=== PATIENT | female | born 1990 | race Caucasian/White ===

== ENCOUNTER 2024-06-25 09:40 | Emergency (ER) | payer OTHER, SELFPAY ==
[2024-06-25 10:09] VITALS: BP 146/99; PULSE 89; RESP 18; TEMP 37.4; O2SAT 100; BMI 33.1
--- NOTE | 2024-06-25 10:47 | ED.CHESTPAIN ---
HPI - Chest Pain General Time Seen by Provider: 10:47 Date Seen: 06/25/24 Chief Complaint: Chest Pain Stated Complaint: Chest pain/Abdominal Pain - GERD Time Seen by Provider: 06/25/24 10:46 History of Present Illness HPI narrative: Shavon is a 34-year-old female coming into the ER with concerns of reflux symptoms that are significant for her. She has reflux symptoms and significant heartburn, she feels it in the lower esophagus, epigastric area and upper stomach. She does note that symptoms have been present for about 7 months. I did spend about 30 minutes looking through her outside records prior to coming in to see her. She is worried that she is not being taken seriously through [facility]. 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 She does not want to lose her job. She states that she has been on Protonix 40 mg daily but not twice a day. She has tried omeprazole, esomeprazole. She has been on famotidine, was on 2 tablets twice a day then was tapered down to 1 tablet twice a day, felt worsen put herself back up on 2 tablets twice a day. She has tried Tums, Tomeka-Roulette, Mylanta, glenys. She notes no fevers or chills. Her lower abdomen has had some sharp pain with her current symptoms. She notes her regurgitant symptoms or maybe down. She has had surgery for endometriosis. She was in [facility] on June 21, she has a known diagnosis of GERD without esophagitis. They have ordered an esophagram. She notes she has had an EGD recently and there is no evidence of esophagitis. She has completed a Cox study which did show significant GERD, she did not completed though as there was some issue with the probe. I did review the records, she had an EGD on June 07 and had Cox pH probe placement. Despite only having the capsule on for 18 hours, fell off, it was strongly positive and had positive symptom correlation for regurgitation. This study represented a large amount of esophageal acid exposure and her symptom correlation score was [address] Pan from [facility] at [place] has been involved in her case. She is wondering if there is anything else to do. If there are other medicines. I do not see any recent CT imaging that I can review. Related Data Home Medications ?Medication ?Instructions ?Recorded ?Confirmed acetaminophen 500 mg tablet mg PO 06/25/24 clonazepam 0.5 mg tablet mg PO 06/25/24 dextroamphetamine sulfate 10 mg 10 mg PO 3XD 06/25/24 06/25/24 tablet diclofenac sodium 1 % topical gel 1 ea topical QID 06/25/24 06/25/24 elagolix 150 mg tablet (Orilissa) mg PO 06/25/24 famotidine 40 mg tablet 40 mg PO BID 06/25/24 06/25/24 lactulose 10 gram/15 mL oral ml PO 06/25/24 solution lamotrigine 200 mg tablet 400 mg PO QPM 06/25/24 06/25/24 metoprolol succinate 50 mg 75 mg PO DAILY 06/25/24 06/25/24 tablet,extended release 24 hr nicotine (polacrilex) 2 mg gum mg PO 06/25/24 norethindrone (contraceptive) 0.35 mg PO 06/25/24 mg tablet (Kiya) ondansetron HCl 4 mg tablet 4 mg PO Q8H PRN 06/25/24 06/25/24 oxycodone 5 mg tablet mg PO 06/25/24 pantoprazole 40 mg tablet,delayed 40 mg PO DAILY 06/25/24 06/25/24 release polyethylene glycol 3350 17 g PO 06/25/24 gram/dose oral powder prazosin 1 mg capsule mg PO 06/25/24 prazosin 2 mg capsule mg PO 06/25/24 prazosin 5 mg capsule 5 mg PO QPM 06/25/24 06/25/24 sennosides 8.6 mg-docusate sodium PO 06/25/24 50 mg tablet (Stool Softener-Stimulant Laxative) tizanidine 4 mg tablet 4 mg PO 3XD 06/25/24 06/25/24 ziprasidone HCl 20 mg capsule 80 mg PO DAILY 06/25/24 06/25/24 Previous Rx's ?Medication ?Instructions ?Recorded pantoprazole 40 mg tablet,delayed 40 mg PO BID #30 tabs 06/25/24 release (Protonix) Allergies Allergy/AdvReac Type Severity Reaction Status Date / Time sumatriptan Allergy Intermediate SOB Verified 06/25/24 10:26 levomilnacipran Allergy Mild anxiety Verified 06/25/24 10:26 sucralfate Allergy Mild itching Verified 06/25/24 10:26 asenapine Allergy Unknown Verified 06/25/24 10:26 carbamazepine Allergy Unknown Verified 06/25/24 10:26 Review of Systems Status of ROS Reports: 6 or more systems reviewed and unremarkable except as noted in History and below Exam Const Vital Signs, click to edit/add: Vital Signs - 24 hr 06/25/24 10:09 Temperature 99.4 F Pulse Rate [Pulse Oximeter] 89 Respiratory Rate 18 Blood Pressure [Right Upper Arm] 146/99 H Pulse Oximetry 100 Oxygen Delivery Method Room Air Shavon is alert, interactive, no apparent distress. She is seen in exam room to, lying in the bed. Sclera clear, symmetrical facial function, able speak in complete sentences. Neck supple, no adenopathy. Lungs clear, no wheezing or crackles or tachypnea. CV regular rate and rhythm, no murmur. Abdomen is soft, nontender, nondistended, no organomegaly, bowel sounds are present. Skin visualized out rash. Documenting provider has reviewed patient's vital signs: yes Course Course ED Course: Shavon and I have discussed imaging, she declines, she states she has had multiple CT scans over the past year and recent history. She would like to avoid further radiation. We discussed doing screening labs, she does agree to do that. Want to ensure that we are not missing anything. Will get an EKG and troponin on her as well to ensure no atypical presentation of symptoms that her actually not GI. Will try GI cocktail, try a 40 mg IV Protonix and await her labs. Reevaluation(s) Time of Reevaluation #1: 12:23 Reevaluation #1: Checked on patient, her upper esophagus is numb, feels better but she still feels the epigastric burning, she has never had the GI cocktail not work for her. Reviewed with her her labs are reassuring outside of a hemoglobin of 11.5. She believes that is where she typically runs. We discussed that narcotics really do not have a role here, they do not change the underlying physiology or symptoms. I will see if there is anything else that I can come up with. We use a give patient has a liquid called Bicitra before going into surgery or C-sections. I will see if pharmacy maybe has some, perhaps could try that. She did request IV Toradol after I had been in with her initially did order 15 mg IV. Time of Reevaluation #2: 12:43 Reevaluation #2: Patient is requesting to leave. Did review with her that I was talking to Pharmacy, others to see about any further options with management. Pharmacy did recommend Gaviscon [id number]. I have reviewed what she is on, they agree with having the Protonix increased. I really think she needs to talk to GI, I do not have that capacity here. I do also think that she needs to consider having the Simon fundoplication sooner rather than later if she is this miserable from her symptoms. Pharmacy states there was a shortage of Bicitra, we do not currently have any. Vital Signs Vital signs: Initial Vital Signs Temperature 99.4 F 06/25/24 10:09 Temperature Source Temporal Artery Scan 06/25/24 10:09 Pulse Rate 89 06/25/24 10:09 Respiratory Rate 18 06/25/24 10:09 Blood Pressure 146/99 H 06/25/24 10:09 Blood Pressure Mean 114 H 06/25/24 10:09 Blood Pressure Position Sitting 06/25/24 10:09 Pulse Oximetry 100 06/25/24 10:09 Oxygen Delivery Method Room Air 06/25/24 10:09 Vital Signs Temperature 99.4 F 06/25/24 10:09 Pulse Rate 89 06/25/24 10:09 Respiratory Rate 18 06/25/24 10:09 Blood Pressure 146/99 H 06/25/24 10:09 Pulse Oximetry 100 06/25/24 10:09 Oxygen Delivery Method Room Air 06/25/24 10:09 Temperature 99.4 F 06/25/24 10:09 Pulse Rate 89 06/25/24 10:09 Respiratory Rate 18 06/25/24 10:09 Blood Pressure 146/99 H 06/25/24 10:09 Pulse Oximetry 100 06/25/24 10:09 Oxygen Delivery Method Room Air 06/25/24 10:09 Medications Administered Medications: Discontinued Medications Generic Name Dose Route Start Last Admin Trade Name Freq PRN Reason Stop Dose Admin Ketorolac Tromethamine 15 mg 06/25/24 11:40 06/25/24 11:55 Ketorolac 15 Mg/Ml Inj IVP 06/25/24 11:41 15 mg ONCE ONE Administration Lidocaine/Aluminum/Magnesium/Simeth 30 ml 06/25/24 11:19 06/25/24 11:53 Gi Cocktail (Visc Lido/Antacid) 30 Ml PO 06/25/24 11:20 30 ml ONCE ONE Administration Pantoprazole Sodium 40 mg 06/25/24 11:19 06/25/24 11:56 Pantoprazole Sodium 40 Mg Inj IVP 06/25/24 11:20 40 mg ONCE ONE Administration MDM - Chest Pain Lab Data Attestation: I reviewed the patient's lab results. Labs: Lab Results 06/25/24 Range/Units 11:30 WBC 7.60 (4.50-11.00) K/uL RBC 3.92 L (4.00-5.20) m/uL Hgb 11.5 L (12.0-16.0) gm/dL Hct 35.5 (33.0-51.0) % MCV 91 (80-100) fL MCH 29 (26-34) pg MCHC 32 (32-36) gm/dL RDW Coeff of Keren 15.5 (11.5-15.5) % Plt Count 373 (140-440) K/uL Neut % (Auto) 76.4 H (42.0-72.0) % Lymph % (Auto) 16.2 L (20-44) % [place] % (Auto) 6.4 (0.0-11.0) % Eos % (Auto) 0.5 (0.0-7.0) % Baso % (Auto) 0.4 (0.0-3.0) % Neut # (Auto) 5.80 (1.7-7.0) K/uL Lymph # (Auto) 1.20 (0.90-2.90) K/uL [place] # (Auto) 0.50 (0.00-0.90) K/UL Eos # (Auto) 0.04 (0.00-0.50) K/uL Baso # (Auto) 0.03 (0.00-0.30) K/uL Abs Immat Gran (auto) 0.01 (0.00-0.30) K/uL Imm/Tot Granulo (auto) 0.1 % Sodium 137 (135-149) mmol/L Potassium 4.0 (3.6-5.1) mmol/L Chloride 105 (96-114) mmol/L Carbon Dioxide 23 (20-32) mmol/L Anion Gap 9 (7-15) mEq/L BUN 15 (5-24) mg/dL Creatinine 0.6 (0.5-1.5) mg/dL Estimated Creat Clear 132.02 Estimated GFR 120 ml/min Glucose 116 H (60-115) mg/dL Lactate 1.0 (0.5-1.9) mmol/L Calcium 9.4 (8.4-10.6) mg/dL Total Bilirubin 0.1 (0.1-1.5) mg/dL Direct Bilirubin 0.1 (0.0-0.5) mg/dL AST 22 (12-35) U/L ALT 17 (4-35) U/L Alkaline Phosphatase 92 (40-150) U/L Troponin I < 0.01 L (0.01-0.04) ng/mL C-Reactive Protein 0.7 (0.5-1.0) mg/dL NT-Pro-B Natriuret Pep 119 pg/mL Total Protein 7.4 (6.0-8.3) g/dL Albumin 4.3 (3.3-5.0) g/dL Lipase 65 (23-300) U/L ECG Data Attestation: I personally reviewed and interpreted this ECG as follows: (Normal sinus rhythm with sinus arrhythmia, 71 beats per minute. Poor R-wave progression anterior precordial leads without any ST segment changes, flipped T-waves in V1 and V2.) ECG interpretation date: 06/25/24 ECG interpretation time: 11:45 Prior ECG tracings: not available for review Discharge Plan Discharge Clinical Impression: Chest pain due to GERD Patient Disposition: Home, Self-Care Condition: Stable Instructions: GERD (Gastroesophageal Reflux Disease) (ED) Additional Instructions: Take Protonix twice a day. Stay on the famotidine twice a day at the increased dose. Please contact your primary care provider as well as your GI provider to discuss further management. I do think you may need to consider proceeding with the Simon fundoplication if they cannot find management to control your symptoms that you feel adequately help you. Activity Level: Activity as Tolerated Prescriptions: New pantoprazole [Protonix] 40 mg tablet,delayed release (DR/EC) 40 mg PO BID Qty: 30 0RF No Action lamotrigine 200 mg tablet 400 mg PO QPM metoprolol succinate 50 mg tablet extended release 24 hr 75 mg PO DAILY famotidine 40 mg tablet 40 mg PO BID clonazepam 0.5 mg tablet PO acetaminophen 500 mg tablet PO dextroamphetamine sulfate 10 mg tablet 10 mg PO 3XD lactulose 10 gram/15 mL solution PO diclofenac sodium 1 % gel 1 ea topical QID Orilissa 150 mg tablet PO nicotine (polacrilex) 2 mg gum PO tizanidine 4 mg tablet 4 mg PO 3XD prazosin 1 mg capsule PO ondansetron HCl 4 mg tablet 4 mg PO Q8H PRN sennosides-docusate sodium [Stool Softener-Stimulant Laxat] 8.6-50 mg tablet PO prazosin 5 mg capsule 5 mg PO QPM ziprasidone HCl 20 mg capsule 80 mg PO DAILY pantoprazole 40 mg tablet,delayed release (DR/EC) 40 mg PO DAILY polyethylene glycol 3350 17 gram/dose powder PO norethindrone (contraceptive) [Kiya] 0.35 mg tablet PO prazosin 2 mg capsule PO oxycodone 5 mg tablet PO Follow Up/Referrals: Corrina Aragon MD [Emergency Provider] - Stand Alone Forms: [facility] Info Instructions
[2024-06-25 11:39] LABS: Basophils Absolute Auto 0.03 K/uL (0.00-0.30); Basophils Percent Auto 0.4 % (0.0-3.0); Eosinophils Absolute Auto 0.04 K/uL (0.00-0.50); Eosinophils Percent Auto 0.5 % (0.0-7.0); Hematocrit 35.5 % (33.0-51.0); Hemoglobin* 11.5 gm/dL (12.0-16.0); Immature Granulocytes Abs Auto 0.01 K/uL (0.00-0.30); Immature Granulocytes Pct Auto 0.1 %; Lymphocytes Percent Auto 16.2 % (20-44); Mean Corpuscular HGB Conc 32 gm/dL (32-36); Mean Corpuscular Hemoglobin 29 pg (26-34); Mean Corpuscular Volume 91 fL (80-100); Monocytes Percent Auto 6.4 % (0.0-11.0); Neutrophils Percent Auto 76.4 % (42.0-72.0); Platelet Count* 373 K/uL (140-440); RDW Coefficient of Variation % 15.5 % (11.5-15.5); Red Blood Count 3.92 m/uL (4.00-5.20)
[2024-06-25 11:40] LABS: Slide Review Reflex No
[2024-06-25] MEDS: GI COCKTAIL (VISC LIDO/ANTACID) 30 ML PO (11:53)
[2024-06-25 11:55] LABS: Albumin* 4.3 g/dL (3.3-5.0); Chloride* 105 mmol/L (96-114)
[2024-06-25] MEDS: KETOROLAC 15 MG/ML inj IVP (11:55)
[2024-06-25 11:56] LABS: Sodium* 137 mmol/L (135-149)
[2024-06-25] MEDS: PANTOPRAZOLE SODIUM 40 MG INJ IVP (11:56)
[2024-06-25 11:58] LABS: Creatinine* 0.6 mg/dL (0.5-1.5); Est. Creatinine Clearance* 132.02; Estimated Glomerular Filt Rate 120 ml/min
[2024-06-25 11:59] LABS: Alanine Aminotransferase* 17 U/L (4-35); Alkaline Phosphatase* 92 U/L (40-150); Anion Gap 9 mEq/L (7-15); Aspartate Amino Transferase* 22 U/L (12-35); Bilirubin Direct* 0.1 mg/dL (0.0-0.5); Bilirubin Total* 0.1 mg/dL (0.1-1.5); Blood Urea Nitrogen* 15 mg/dL (5-24); Carbon Dioxide* 23 mmol/L (20-32); Glucose* 116 mg/dL (60-115); Total Protein* 7.4 g/dL (6.0-8.3)
[2024-06-25 12:00] LABS: Calcium* 9.4 mg/dL (8.4-10.6); Lipase* 65 U/L (23-300)
[2024-06-25 12:02] LABS: C Reactive Protein* 0.7 mg/dL (0.5-1.0)
[2024-06-25 12:11] LABS: NT Pro B Type NatriureticPept* 119 pg/mL; Troponin I* < 0.01 ng/mL (0.01-0.04)
== END 2024-06-25 12:57 | disposition home or self-care (01) ==
PROVIDERS: Emergency Provider Family Medicine; PCP General Practice
DX: R07.89 Other chest pain (principal); K21.9 Gastro-esophageal reflux disease without esophagitis
CPT/HCPCS: 36415; 80053; 82248; 83605; 83690; 83880; 84484; 85025; 86140; 93005; 96374; 96375; 99284; A9270; J1885; J2470

== ENCOUNTER 2024-07-29 14:03 | Emergency (ER) | payer OTHER, SELFPAY ==
[2024-07-29 14:20] VITALS: BP 159/90; PULSE 81; RESP 28; TEMP 36.8; O2SAT 100; BMI 31.6
--- NOTE | 2024-07-29 14:30 | ED.GENADULT ---
HPI - General Adult General Time Seen by Provider: 14:30 Date Seen: 07/29/24 Chief complaint: Chest Pain Stated complaint: Chest pain, short of breath Time Seen by Provider: 07/29/24 14:30 Source: patient and RN notes reviewed Mode of arrival: ambulatory Limitations: no limitations History of Present Illness HPI narrative: This 34-year-old female is coming in with epigastric pain, regurgitant symptoms, nausea, vomiting of regurgitant symptoms at times. For the last couple days she has felt short of breath, has been coughing some. No fevers or chills. She does have severe GERD proven by a Cox study, refer reader to my last ED note when I saw patient on June 25. She states she did talk to the GI person after that visit in [place], he had no further recommendations. On discussion of the Carafate, she states she tried it for 4 days and was extremely itchy the whole time, no hives noted but she states they were almost there. Once the care fate was stopped, the itching went away. She remains on double dose proton pump inhibitor, famotidine 40 mg twice a day. She states the friend that she is with prompted her to come in. This friends stated that she was curled up in the position in [facility]. Patient notes that she can not work, I really can not do anything due to her symptoms. Her friend is worried that she is getting worse, wonders if she could aspirate into her lungs. We did discuss that that certainly can happen but patient's usually get aspiration pneumonia and become quite symptomatic from that. Patient notes that she is scheduled for the consult to get her Simon fundoplication scheduled on August 16. She notes that is just the consult. She has maybe had a little diarrhea. She is having epigastric symptoms and pain radiating up into her chest. Nursing staff noted patient to be hyperventilating in triage. Her friend asks if there is anything that we can give her for the pain. She has been using oxycodone, the friend has been giving it to her every 4 hours and it is not helping. The friend had been given an IV 30 minute pain treatment at 1 point, wonders if that could be done here. I reviewed with both patient and her friend that if these are reflux symptoms, none of this does anything to alter the symptoms in would not expect it to help with pain. She admits that the oxycodone does not alter her symptoms at all. We discussed in this situation that this is really a set up for risk of addiction using narcotic pain medicines particularly when they are not helping. She still can become physiologically addicted. As I had discussed with her during last visit, I can check and rule out other possible etiologies but we really do not have anything further to offer for severe GERD here. I do not have GI. Related Data Home Medications ?Medication ?Instructions ?Recorded ?Confirmed acetaminophen 500 mg tablet mg PO 06/25/24 clonazepam 0.5 mg tablet mg PO 06/25/24 dextroamphetamine sulfate 10 mg 10 mg PO 3XD 06/25/24 06/25/24 tablet diclofenac sodium 1 % topical gel 1 ea topical QID 06/25/24 06/25/24 elagolix 150 mg tablet (Orilissa) mg PO 06/25/24 famotidine 40 mg tablet 40 mg PO BID 06/25/24 06/25/24 lactulose 10 gram/15 mL oral ml PO 06/25/24 solution lamotrigine 200 mg tablet 400 mg PO QPM 06/25/24 06/25/24 metoprolol succinate 50 mg 75 mg PO DAILY 06/25/24 06/25/24 tablet,extended release 24 hr nicotine (polacrilex) 2 mg gum mg PO 06/25/24 norethindrone (contraceptive) 0.35 mg PO 06/25/24 mg tablet (Kiya) ondansetron HCl 4 mg tablet 4 mg PO Q8H PRN 06/25/24 06/25/24 oxycodone 5 mg tablet mg PO 06/25/24 pantoprazole 40 mg tablet,delayed 40 mg PO DAILY 06/25/24 06/25/24 release polyethylene glycol 3350 17 g PO 06/25/24 gram/dose oral powder prazosin 1 mg capsule mg PO 06/25/24 prazosin 2 mg capsule mg PO 06/25/24 prazosin 5 mg capsule 5 mg PO QPM 06/25/24 06/25/24 sennosides 8.6 mg-docusate sodium PO 06/25/24 50 mg tablet (Stool Softener-Stimulant Laxative) tizanidine 4 mg tablet 4 mg PO 3XD 06/25/24 06/25/24 ziprasidone HCl 20 mg capsule 80 mg PO DAILY 06/25/24 06/25/24 Previous Rx's ?Medication ?Instructions ?Recorded pantoprazole 40 mg tablet,delayed 40 mg PO BID #30 tabs 06/25/24 release (Protonix) Allergies Allergy/AdvReac Type Severity Reaction Status Date / Time sumatriptan Allergy Intermediate SOB Verified 06/25/24 10:26 levomilnacipran Allergy Mild anxiety Verified 06/25/24 10:26 sucralfate Allergy Mild itching Verified 06/25/24 10:26 asenapine Allergy Unknown Verified 06/25/24 10:26 carbamazepine Allergy Unknown Verified 06/25/24 10:26 Review of Systems Status of ROS: Reports: 6 or more systems reviewed and unremarkable except as noted in History and below Exam Const: Vital Signs, click to edit/add: Vital Signs - 24 hr 07/29/24 14:20 Temperature 98.2 F Pulse Rate [Pulse Oximeter] 81 Respiratory Rate 28 H Blood Pressure [Le ft Upper Arm] 159/90 H Pulse Oximetry 100 Oxygen Delivery Me thod Room Air This 34-year-old female is alert, interactive, seen in exam room 4. She is able speak in complete sentences, does seem to be hyperventilating, has emesis bag next to her. Pupils equal round, sclera clear, symmetrical facial function. Neck is supple, no adenopathy, no thyromegaly masses or nodules. Lungs are clear, good air entry, no wheeze or crackles. CV regular rate and rhythm, no murmur, normal S1-S2, no S3-S4. Abdomen is soft, nontender, nondistended, mild epigastric pain but no rebound or guarding, do not feel any organomegaly. Patient is ambulatory into the ED. no pretibial edema noted. Documenting provider has reviewed patient's vital signs: yes Course Course ED Course: Have reviewed with patient that I certainly can look at other etiologies for her pain. Will certainly do full complement of labs, consider cardiac disease, will have her monitored on pulse oximetry, obtain EKG. As part of the labs we can do a troponin. We will get portable chest x-ray. I have reviewed with her friend that clinically I am not concerned about aspiration pneumonia. The only other medication that I know to consider for this would be the Carafate which she does not seem to be able to tolerate. She is oxygenating at 100%, is on a progesterone only oral contraceptive. She is PERC negative. Reviewed that I am willing to try some Toradol which is IV NSAID, with significant reflux, would not recommend extensive dosing of ibuprofen. We will also try a GI cocktail although last time did not completely give her any symptom relief. Up I am not comfortable with advancing narcotics, doing IV ketamine in this situation, do not feel it is warranted or indicated. Ultimately, she really needs to consult GI specialist for further management of her symptoms, she has advanced beyond the care of the ED and are available consultants here. I did discuss doing triple viral swab to ensure no atypical presentation of COVID or influenza as that is going around. Patient declined this stating she does not need any swab shoved up her nose. Reevaluation(s) Time of Reevaluation #1: 15:01 Reevaluation #1: Nursing staff notes that patient is declining the EKG. Time of Reevaluation #2: 15:27 Reevaluation #2: Nursing staff informed me that patient is requesting to go home. They gave patient her GI cocktail and she asked if she could leave. Reviewed with nursing staff to have her sign against medical advice, have not seen the full complement of her labs as they are not back. Patient is reported to have left AMA at 3:30 p.m.. Will cancel labs that have not been done. Vital Signs Vital signs: Initial Vital Signs Temperature 98.2 F 07/29/24 14:20 Temperature Source Temporal Artery Scan 07/29/24 14:20 Pulse Rate 81 07/29/24 14:20 Respiratory Rate 28 H 07/29/24 14:20 Blood Pressure 159/90 H 07/29/24 14:20 Blood Pressure Mean 113 H 07/29/24 14:20 Pulse Oximetry 100 07/29/24 14:20 Oxygen Delivery Method Room Air 07/29/24 14:20 Vital Signs Temperature 98.2 F 07/29/24 14:20 Pulse Rate 81 07/29/24 14:20 Respiratory Rate 28 H 07/29/24 14:20 Blood Pressure 159/90 H 07/29/24 14:20 Pulse Oximetry 100 07/29/24 14:20 Oxygen Delivery Method Room Air 07/29/24 14:20 Temperature 98.2 F 07/29/24 14:20 Pulse Rate 81 07/29/24 14:20 Respiratory Rate 28 H 07/29/24 14:20 Blood Pressure 159/90 H 07/29/24 14:20 Pulse Oximetry 100 07/29/24 14:20 Oxygen Delivery Method Room Air 07/29/24 14:20 Medications Administered Medications: Discontinued Medications Generic Name Dose Route Start Last Admin Trade Name Truman PRN Reason Stop Dose Admin Ketorolac Tromethamine 15 mg 07/29/24 14:45 07/29/24 15:14 Ketorolac 15 Mg/Ml Inj IVP 07/29/24 14:46 15 mg ONCE ONE Administration Lidocaine/Aluminum/Magnesium/Simeth 30 ml 07/29/24 14:45 07/29/24 15:13 Gi Cocktail (Visc Lido/Antacid) 30 Ml PO 07/29/24 14:46 30 ml ONCE ONE Administration Medical Decision Making Lab Data Lab results reviewed: Yes I reviewed the patient's lab results Lab results narrative: At the time patient is requesting to leave, only labs back are normal lactate and venous pH which supports hyperventilation that patient was seen to be doing. Labs: Lab Results 07/29/24 Range/Units 14:55 WBC 11.25 H (4.50-11.00) K/uL RBC 4.39 (4.00-5.20) m/uL Hgb 12.9 (12.0-16.0) gm/dL Hct 39.7 (33.0-51.0) % MCV 90 (80-100) fL MCH 29 (26-34) pg MCHC 33 (32-36) gm/dL RDW Coeff of Keren 14.5 (11.5-15.5) % Plt Count 441 H (140-440) K/uL Neut % (Auto) 71.5 (42.0-72.0) % Lymph % (Auto) 22.4 (20-44) % Weston % (Auto) 5.2 (0.0-11.0) % Eos % (Auto) 0.5 (0.0-7.0) % Baso % (Auto) 0.3 (0.0-3.0) % Neut # (Auto) 8.00 H (1.7-7.0) K/uL Lymph # (Auto) 2.50 (0.90-2.90) K/uL Weston # (Auto) 0.60 (0.00-0.90) K/UL Eos # (Auto) 0.10 (0.00-0.50) K/uL Baso # (Auto) 0.00 (0.00-0.30) K/uL Abs Immat Gran (auto) 0.00 (0.00-0.30) K/uL Imm/Tot Granulo (auto) 0.1 % VBG pH 7.476 H (7.32-7.43) VBG pCO2 28 L (40-50) mmHG VBG pO2 34.3 (25-47) mmHG VBG HCO3 21 (21-28) mmol/L Sodium 138 (135-149) mmol/L Potassium 3.5 L (3.6-5.1) mmol/L Chloride 109 (96-114) mmol/L Carbon Dioxide 18 L (20-32) mmol/L Anion Gap 11 (7-15) mEq/L BUN 14 (5-24) mg/dL Creatinine 0.7 (0.5-1.5) mg/dL Estimated Creat Clear 113.16 Estimated GFR 116 ml/min Glucose 106 (60-115) mg/dL Lactate 1.5 (0.5-1.9) mmol/L Calcium 9.5 (8.4-10.6) mg/dL Total Bilirubin 0.3 (0.1-1.5) mg/dL AST 19 (12-35) U/L ALT 19 (4-35) U/L Alkaline Phosphatase 104 (40-150) U/L Troponin I < 0.01 L (0.01-0.04) ng/mL C-Reactive Protein < 0.5 L (0.5-1.0) mg/dL NT-Pro-B Natriuret Pep 35 pg/mL Total Protein 8.0 (6.0-8.3) g/dL Albumin 4.7 (3.3-5.0) g/dL Lipase 179 (23-300) U/L Imaging Data Chest x-ray: Attestation: I have reviewed the pertinent imaging results. My impression: My preliminary review of patient's chest x-ray is no evidence of any pneumonia. Radiologist's impression: Patient: JERAMIE CHILDS Facility:[facility] Patient ID:?[id number] Site Patient ID:?[id number]. Site :?[id number] Study:?XRay-Chest 1 VIEW PORTABLE-07/29/2024 3:07:38 PM Ordering Physician:Daisy Houser Final Report: INDICATION: Short of breath, severe GERD TECHNIQUE: 1 view chest radiograph COMPARISON: None. FINDINGS: Devices: None. Lung volumes are good. No focal or diffuse opacities. No pleural effusion. No pneumothorax. Heart size is normal. Osseous structures are normal. IMPRESSION: Normal chest radiograph. Dictated by Elizabeth Marinelli MD @ 07/29/2024 3:33:23 PM (Electronic Signature) Discharge Plan Discharge Clinical Impression: Chest pain due to GERD, Shortness of breath Patient Disposition: Left Against Medical Advice Prescriptions: No Action lamotrigine 200 mg tablet 400 mg PO QPM metoprolol succinate 50 mg tablet extended release 24 hr 75 mg PO DAILY famotidine 40 mg tablet 40 mg PO BID clonazepam 0.5 mg tablet PO acetaminophen 500 mg tablet PO dextroamphetamine sulfate 10 mg tablet 10 mg PO 3XD lactulose 10 gram/15 mL solution PO diclofenac sodium 1 % gel 1 ea topical QID Orilissa 150 mg tablet PO nicotine (polacrilex) 2 mg gum PO tizanidine 4 mg tablet 4 mg PO 3XD prazosin 1 mg capsule PO ondansetron HCl 4 mg tablet 4 mg PO Q8H PRN sennosides-docusate sodium [Stool Softener-Stimulant Laxat] 8.6-50 mg tablet PO prazosin 5 mg capsule 5 mg PO QPM ziprasidone HCl 20 mg capsule 80 mg PO DAILY pantoprazole 40 mg tablet,delayed release (DR/EC) 40 mg PO DAILY polyethylene glycol 3350 17 gram/dose powder PO norethindrone (contraceptive) [Kiya] 0.35 mg tablet PO prazosin 2 mg capsule PO oxycodone 5 mg tablet PO pantoprazole [Protonix] 40 mg tablet,delayed release (DR/EC) 40 mg PO BID Qty: 30 0RF Follow Up/Referrals: Delia Segundo MD [Primary Care Provider] - Stand Alone Forms: [facility] Info Instructions
--- NOTE | 2024-07-29 14:48 | CRLHL7_ITS ---
For Patients: As a result of the Century Cures Act, medical imaging exams and procedure reports are released immediately into your electronic medical record. You may view this report before your referring provider. If you have questions, please contact your health care provider. INDICATION: Short of breath, severe GERD TECHNIQUE: 1 view chest radiograph COMPARISON: None. FINDINGS: Devices: None. Lung volumes are good. No focal or diffuse opacities. No pleural effusion. No pneumothorax. Heart size is normal. Osseous structures are normal. IMPRESSION: Normal chest radiograph. Dictated by Elizabeth Marinelli MD @ 07/29/2024 3:33:23 PM (Electronically Signed)
[2024-07-29 15:10] LABS: HCO3 VBG 21 mmol/L (21-28); Lactate* 1.5 mmol/L (0.5-1.9); PCO2 VBG 28 mmHG (40-50); PO2 VBG 34.3 mmHG (25-47); pH VBG 7.476 (7.32-7.43)
[2024-07-29 15:11] LABS: Basophils Percent Auto 0.3 % (0.0-3.0); Eosinophils Percent Auto 0.5 % (0.0-7.0); Hematocrit 39.7 % (33.0-51.0); Hemoglobin* 12.9 gm/dL (12.0-16.0); Immature Granulocytes Pct Auto 0.1 %; Lymphocytes Percent Auto 22.4 % (20-44); Mean Corpuscular HGB Conc 33 gm/dL (32-36); Mean Corpuscular Hemoglobin 29 pg (26-34); Mean Corpuscular Volume 90 fL (80-100); Monocytes Percent Auto 5.2 % (0.0-11.0); Neutrophils Percent Auto 71.5 % (42.0-72.0); Platelet Count* 441 K/uL (140-440); RDW Coefficient of Variation % 14.5 % (11.5-15.5); Red Blood Count 4.39 m/uL (4.00-5.20); White Blood Count* 11.25 K/uL (4.50-11.00)
[2024-07-29] MEDS: GI COCKTAIL (VISC LIDO/ANTACID) 30 ML PO (15:13)
[2024-07-29] MEDS: KETOROLAC 15 MG/ML inj IVP (15:14)
--- NOTE | 2024-07-29 15:29 | ED.NURSE ---
Pt requested to leave AMA after receiving her GI cocktail. notified. Pt filled out AMA form, understands to follow up with her primary care doctor.
[2024-07-29 15:40] LABS: Chloride* 109 mmol/L (96-114)
[2024-07-29 15:41] LABS: Albumin* 4.7 g/dL (3.3-5.0); Potassium* 3.5 mmol/L (3.6-5.1); Sodium* 138 mmol/L (135-149)
[2024-07-29 15:42] LABS: Lipase* 179 U/L (23-300)
[2024-07-29 15:43] LABS: Anion Gap 11 mEq/L (7-15); Carbon Dioxide* 18 mmol/L (20-32); Creatinine* 0.7 mg/dL (0.5-1.5); Est. Creatinine Clearance* 113.16; Estimated Glomerular Filt Rate 116 ml/min
[2024-07-29 15:44] LABS: Alanine Aminotransferase* 19 U/L (4-35); Alkaline Phosphatase* 104 U/L (40-150); Aspartate Amino Transferase* 19 U/L (12-35); Bilirubin Total* 0.3 mg/dL (0.1-1.5); Blood Urea Nitrogen* 14 mg/dL (5-24); Calcium* 9.5 mg/dL (8.4-10.6); Glucose* 106 mg/dL (60-115); Slide Review Reflex No
[2024-07-29 15:49] LABS: C Reactive Protein* < 0.5 mg/dL (0.5-1.0)
[2024-07-29 15:51] LABS: NT Pro B Type NatriureticPept* 35 pg/mL
[2024-07-29 16:01] LABS: Troponin I* < 0.01 ng/mL (0.01-0.04)
== END 2024-07-29 15:30 | disposition left against medical advice (07) ==
PROVIDERS: Emergency Provider Family Medicine; PCP General Practice
DX: R07.89 Other chest pain (principal); K21.9 Gastro-esophageal reflux disease without esophagitis; R06.02 Shortness of breath; Z53.29 Procedure and treatment not carried out because of patient's decision for other reasons
CPT/HCPCS: 36415; 71045; 80053; 82803; 83605; 83690; 83880; 84484; 85025; 86140; 96374; 99283; 99284; A9270; J1885